=== PATIENT | male | born 1985 | race Caucasian/White ===

== ENCOUNTER 2020-02-19 15:01 | Emergency (ER) | payer SELFPAY ==
[~2020-02-19] VITALS: Ht 185.4 cm; Wt 118.8 kg
[2020-02-19 15:14] VITALS: Ht 185.4 cm; Wt 118.8 kg
[2020-02-19 17:09] VITALS: BP 103/64
[2020-02-19 17:45] LABS: UA SPECIFIC GRAVITY >=1.030 (1.005-1.035); microscopic required? YES; urine erythrocyte TRACE (NEGATIVE)
== END 2020-02-19 17:09 | disposition home or self-care (01) ==
LOC: ED 15:01
PROVIDERS: Emergency Medicine
DX: B34.9 Viral infection, unspecified (principal); F17.210 Nicotine dependence, cigarettes, uncomplicated; Z20.828 Contact with and (suspected) exposure to other viral communicable diseases
CPT/HCPCS: 87804; Q0092; U0003-CS

== ENCOUNTER 2020-02-19 17:18 | Emergency (ER) | payer SELFPAY ==
[~2020-02-19] VITALS: Ht 185.4 cm; Wt 119.3 kg
[2020-02-19 17:22] VITALS: Ht 185.4 cm; Wt 119.3 kg
[2020-02-19 17:58] LABS: BASOPHIL % 0.3 % (0-2); PLATELET COUNT 219 x10^3mcL (130-400); RED CELL DISTRIBUTION WIDTH 13.2 % (11.5-14.5)
[2020-02-19 18:08] LABS: CARBON DIOXIDE 22.6 mmol/L (21-32); CHLORIDE SERUM 102 mmol/L (98-107); CREATININE SERUM 1.2 mg/dL (0.7-1.3); GFR1 > 60 mL/min; GLUCOSE SERUM 104 mg/dL (74-106); POTASSIUM SERUM 3.5 mmol/L (3.5-5.1); SODIUM SERUM 136 mmol/L (136-145)
[2020-02-19 18:21] LABS: ALBUMIN 3.6 g/dL (3.4-5.0); ALKALINE PHOSPHATASE 83 U/L (46-116); ALT/SGPT 45 U/L (16-63); AST/SGOT 32 U/L (15-37); BILIRUBIN TOTAL 0.8 mg/dL (0.20-1.00); LACTIC DEHYDROGENASE (LDH) 217 U/L (100-190); TOTAL PROTEIN, SERUM 7.8 g/dL (6.4-8.2)
[2020-02-19 18:24] LABS: C REACTIVE PROTEIN 12.9 mg/dL (<=0.9)
[2020-02-19 20:58] VITALS: BP 145/87
== END 2020-02-19 21:55 | disposition home or self-care (01) ==
LOC: ED 17:18
PROVIDERS: Emergency Medicine
DX: B34.9 Viral infection, unspecified (principal); R55 Syncope and collapse; Z20.828 Contact with and (suspected) exposure to other viral communicable diseases
CPT/HCPCS: 36600; 83880; 85378; J1885